=== PATIENT | male | born 1985 | race Caucasian/White ===

== ENCOUNTER 2019-04-24 13:26 | Inpatient (IN) | payer BC ==
[2019-04-24] MEDS ORDERED: NA CHLORIDE 0.9% 1,000 ML ONE (14:19)
[2019-04-24] MEDS ORDERED: PIPER/TAZO/NS 3.375gm 3.375 GM/100 ML BAG ONE (14:19)
--- NOTE | 2019-04-24 14:31 | ER ---
Nurse's Notes [facility] Name: Romeo Valadez Age: 34 yrs Sex: Male : 1985 Arrival Date: 04/24/2019 Time: 13:38 Bed 25 Private MD: Diagnosis: Diverticulitis of large intestine with perforation and w/o abscess Presentation: 04/24 13:38 Presenting complaint: Patient states: I went for an outpatient CT and they said that I la1 had a perforated diverticulum. They sent me here. Transition of care: patient was not received from another setting of care. Onset of symptoms was April 24, 2019. Risk Assessment: Do you want to hurt yourself or someone else? Patient reports no desire to harm self or others. Initial Sepsis Screen: Does the patient meet any 2 criteria? No. Patient's initial sepsis screen is negative. Does the patient have a suspected source of infection? No. Patient's initial sepsis screen is negative. Care prior to arrival: None. 13:38 Method Of Arrival: Ambulatory la1 13:38 Acuity: CAROLIN 2 la1 Historical: - Allergies: 13:41 No Known Allergies; la1 - Home Meds: 13:41 None [Active]; la1 - PMHx: 13:41 None; la1 - PSHx: 13:41 Tonsillectomy; la1 - Immunization history:: Adult Immunizations up to date. - Social history:: Smoking status: Patient/guardian denies using tobacco. - Ebola Screening: : No symptoms or risks identified at this time. Screenin:01 Abuse screen: Denies threats or abuse. Denies injuries from another. Nutritional ca1 screening: No deficits noted. Tuberculosis screening: No symptoms or risk factors identified. Fall Risk IV access (20 points). Assessment: 14:00 General: Appears in no apparent distress. comfortable, Behavior is calm, cooperative, ca1 appropriate for age. Pain: Complains of pain in suprapubic area Pain does not radiate. Pain currently is 2 out of 10 on a pain scale. Pain began a week ago Is intermittent. Neuro: Level of Consciousness is awake, alert, obeys commands, Oriented to person, place, time, situation. Cardiovascular: Heart tones S1 S2 present Capillary refill < 3 seconds Patient's skin is warm and dry. Respiratory: Airway is patent Respiratory effort is even, unlabored, Respiratory pattern is regular, symmetrical, Breath sounds are clear bilaterally. GI: Abdomen is round non-distended, Bowel sounds present X 4 quads. Abd is soft and non tender X 4 quads. Reports constipation, Patient currently denies nausea, vomiting. : No deficits noted. No signs and/or symptoms were reported regarding the genitourinary system. EENT: No deficits noted. No signs and/or symptoms were reported regarding the EENT system. Derm: Skin is intact, is healthy with good turgor, Skin is pink, warm \T\ dry. Musculoskeletal: Circulation, motion, and sensation intact. Capillary refill < 3 seconds, Range of motion: intact in all extremities. 14:36 Reassessment: Dr. Randhawa and Dr. Ortiz at bedside. ca1 15:34 Reassessment: Patient appears in no apparent distress at this time. Patient and/or ca1 family updated on plan of care and expected duration. Pain level reassessed. Patient is alert, oriented x 3, equal unlabored respirations, skin warm/dry/pink. 16:10 Reassessment: Patient appears in no apparent distress at this time. Patient is alert, ca1 oriented x 3, equal unlabored respirations, skin warm/dry/pink. Vital Signs: 13:43 Weight 78.93 kg; la1 14:05 BP 121 / 93; Pulse 75; Resp 20; Temp 98.2(O); Pulse Ox 100% ; lt1 14:38 BP 135 / 91; Pulse 75; Resp 16 S; Pulse Ox 100% on R/A; ca1 15:34 BP 122 / 90; Pulse 89; Resp 14 S; Pulse Ox 100% on R/A; ca1 16:10 BP 128 / 93; Pulse 79; Resp 16 S; Pulse Ox 100% on R/A; ca1 ED Course: 13:38 Patient arrived in ED. la1 13:38 Charlie Laboy RN is Primary Nurse. la1 13:39 Munir Redmond PA is PHCP. cp 13:39 Álvaro Sims MD is Attending Physician. cp 13:39 Triage completed. la1 13:43 Arm band placed on left wrist. la1 14:00 No provider procedures requiring assistance completed. IV is patent, IV from CT out pt. ca1 . Flushed left antecubital with 5 ml normal saline. 14:01 Patient has correct armband on for positive identification. Placed in gown. Bed in low ca1 position. Call light in reach. Side rails up X 1. Pulse ox on. NIBP on. Warm blanket given. 14:22 Initial lab(s) drawn, by me, sent to lab. Inserted IV was completed prior to coming to lt1 the emergency room. IV 22. 14:26 Kodi Ortiz DO is Hospitalizing Provider. cp 16:21 Patient admitted, IV remains in place. ca1 Administered Medications: 14:22 Drug: NS 0.9% 1000 ml Route: IV; Rate: 1 bolus; Site: left antecubital; ca1 16:23 Follow up: Response: No adverse reaction; IV Status: Completed infusion; IV Intake: ca1 1000ml 14:25 Drug: Zosyn 3.375 grams Route: IVPB; Infused Over: 60 mins; Site: left antecubital; ca1 15:35 Follow up: Response: No adverse reaction; IV Status: Completed infusion ca1 Intake: 16:23 IV: 1000ml; Total: 1000ml. ca1 Outcome: 14:29 Decision to Hospitalize by Provider. cp 16:21 Admitted to Tele accompanied by tech, family with patient, via wheelchair, room 415, ca1 with chart, Report called to Cam Nelson RN 16:21 Condition: stable 16:21 Instructed on the need for admit. 16:35 Patient left the ED. ca1 Signatures: Charlie Laboy RN RN la1 Munir Redmond PA PA cp Sonia Boyd RN RN ca1 Piedad Moeller [facility] Corrections: (The following items were deleted from the chart) 13:43 13:38 Acuity: CAROLIN 3 la1 la1
--- NOTE | 2019-04-24 14:32 | EDPHYS ---
Physician Documentation [facility] Name: Romeo Valadez Age: 34 yrs Sex: Male : 1985 Arrival Date: 04/24/2019 Time: 13:38 Bed 25 Private MD: ED Physician Álvaro Sims HPI: 04/24 14:00 This 34 yrs old Male presents to ER via Ambulatory with complaints of cp abdominal pain. 14:00 The patient presents with abdominal pain in the lower abdomen. Onset: The cp symptoms/episode began/occurred last month, and became worse 1 week(s) ago. The symptoms do not radiate. Associated signs and symptoms: Pertinent positives: constipation, Pertinent negatives: anorexia, blood in stools, diarrhea, fever, hematuria, testicular pain, vomiting. The symptoms are described as constant. Modifying factors: the symptoms are aggravated by pressure. 14:00 Severity of pain: in the emergency department the pain is a 2 / 10. cp 14:00 The patient has not experienced similar symptoms in the past. cp Historical: - Allergies: 13:41 No Known Allergies; la1 - Home Meds: 13:41 None [Active]; la1 - PMHx: 13:41 None; la1 - PSHx: 13:41 Tonsillectomy; la1 - Immunization history:: Adult Immunizations up to date. - Social history:: Smoking status: Patient/guardian denies using tobacco. - Ebola Screening: : No symptoms or risks identified at this time. ROS: 14:15 Constitutional: Negative for body aches, chills, fever, poor PO intake. cp 14:15 Eyes: Negative for injury, pain, redness, and discharge. cp 14:15 ENT: Negative for drainage from ear(s), ear pain, sore throat, difficulty swallowing, difficulty handling secretions. 14:15 Cardiovascular: Negative for chest pain, edema, palpitations. 14:15 Respiratory: Negative for cough, shortness of breath, wheezing. 14:15 Abdomen/GI: Positive for abdominal pain, constipation, Negative for vomiting, diarrhea, black/tarry stool, rectal bleeding. 14:15 Back: Negative for radiated pain. 14:15 : Negative for urinary symptoms, testicular pain 14:15 Skin: Negative for cellulitis, rash. 14:15 Neuro: Negative for altered mental status, headache, weakness. 14:15 All other systems are negative. Exam: 14:20 Constitutional: The patient appears in no acute distress, alert, awake, cp non-diaphoretic, non-toxic, well developed, well nourished. 14:20 Head/Face: Normocephalic, atraumatic. cp 14:20 Eyes: Periorbital structures: appear normal, Conjunctiva: normal, no exudate, no injection, Sclera: no appreciated abnormality, Lids and lashes: appear normal, bilaterally. 14:20 ENT: External ear(s): are unremarkable, Nose: is normal, Mouth: Lips: moist, Oral mucosa: pink and intact, moist, Posterior pharynx: is normal, airway is patent, no erythema, no exudate. 14:20 Chest/axilla: Inspection: normal, Palpation: is normal, no crepitus, no tenderness. 14:20 Cardiovascular: Rate: normal, Rhythm: regular, Edema: is not appreciated. 14:20 Respiratory: the patient does not display signs of respiratory distress, Respirations: normal, no use of accessory muscles, no retractions, no splinting, no tachypnea, labored breathing, is not present, Breath sounds: are clear throughout, no decreased breath sounds, no stridor, no wheezing. 14:20 Abdomen/GI: Inspection: abdomen appears normal, Bowel sounds: active, all quadrants, Palpation: soft, in all quadrants, mild abdominal tenderness, in the suprapubic area, rebound tenderness, is not appreciated, voluntary guarding, is not appreciated, involuntary guarding, is not appreciated. 14:20 Back: pain, is absent, ROM is normal. 14:20 Skin: no rash present. Vital Signs: 13:43 Weight 78.93 kg; la1 14:05 BP 121 / 93; Pulse 75; Resp 20; Temp 98.2(O); Pulse Ox 100% ; lt1 14:38 BP 135 / 91; Pulse 75; Resp 16 S; Pulse Ox 100% on R/A; ca1 15:34 BP 122 / 90; Pulse 89; Resp 14 S; Pulse Ox 100% on R/A; ca1 16:10 BP 128 / 93; Pulse 79; Resp 16 S; Pulse Ox 100% on R/A; ca1 MDM: 13:42 Patient medically screened. cp 14:14 Physician consultation: Chino Valadez MD was called at 14:10, was contacted at 14:10, cp regarding consult, patient's condition. 14:30 Physician consultation: Kodi Diana COLEMAN was called at 14:25, was contacted at 14:25, cp regarding admission, to the medical/surgical unit. patient's condition. 15:30 Data reviewed: vital signs, nurses notes, diagnostic data from outside facility, cp radiologic studies, CT scan, lab test result(s), and as a result, I will admit patient. 04/24 14:10 Order name: Basic Metabolic Panel; Complete Time: 15:26 cp 04/24 15:26 Interpretation: Normal except: GFR 77. cp 04/24 14:10 Order name: CBC with Diff; Complete Time: 15:27 cp 04/24 15:27 Interpretation: Reviewed. cp 04/24 14:10 Order name: Creatinine for Radiology; Complete Time: 15:26 cp 04/24 14:10 Order name: Hepatic Function; Complete Time: 15:26 cp 04/24 15:26 Interpretation: Normal except: ALK 187; TP 8.6; GLOB 4.9; A/G 0.8. cp 04/24 14:10 Order name: Lipase; Complete Time: 15:26 cp 04/24 14:10 Order name: PT-INR cp 04/24 14:10 Order name: IV Saline Lock; Complete Time: 14:18 cp 04/24 14:10 Order name: Labs collected and sent; Complete Time: 14:21 cp 04/24 14:10 Order name: Ptt, Activated cp 04/24 14:10 Order name: Magnesium; Complete Time: 15:26 cp 04/24 15:26 Interpretation: Abnormal: MG 2.6. cp Administered Medications: 14:22 Drug: NS 0.9% 1000 ml Route: IV; Rate: 1 bolus; Site: left antecubital; ca1 16:23 Follow up: Response: No adverse reaction; IV Status: Completed infusion; IV Intake: ca1 1000ml 14:25 Drug: Zosyn 3.375 grams Route: IVPB; Infused Over: 60 mins; Site: left antecubital; ca1 15:35 Follow up: Response: No adverse reaction; IV Status: Completed infusion ca1 Disposition: 16:41 Co-signature as Attending Physician, Álvaro Sims MD. rn Disposition: 04/24/19 14:29 Hospitalization ordered by Kodi Ortiz for Inpatient Admission. Preliminary diagnosis is Diverticulitis of large intestine with perforation and w/o abscess. - Bed requested for Telemetry/MedSurg (observation). - Status is Inpatient Admission. ca1 - Condition is Stable. - Problem is new. - Symptoms have improved. UTI on Admission? No Signatures: Dispatcher [employer] EDMS Joanne Reinoso bd Álvaro Sims MD MD rn Attema, Lee, RN RN la1 Munir Redmond PA PA cp Acob, Sonia RN RN ca1 Corrections: (The following items were deleted from the chart) 15:36 14:29 Hospitalization Ordered by Kodi Ortiz DO for Inpatient Admission. Preliminary bd diagnosis is Diverticulitis of large intestine with perforation and w/o abscess. Bed requested for Telemetry/MedSurg (observation). Status is Inpatient Admission. Condition is Stable. Problem is new. Symptoms have improved. UTI on Admission? No. cp 16:35 15:36 04/24/2019 14:29 Hospitalization Ordered by Kodi Ortiz DO for Inpatient ca1 Admission. Preliminary diagnosis is Diverticulitis of large intestine with perforation and w/o abscess. Bed requested for Telemetry/MedSurg (observation). Status is Inpatient Admission. Condition is Stable. Problem is new. Symptoms have improved. UTI on Admission? No. bd
[2019-04-24 14:33] LABS: Absolute Lymphocytes (CBC) 2.7 K/uL (0.7-4.9); Basophils % 0.7 % (0-1.3); Hematocrit 43.1 % (39.6-49.0); Lymphocytes % 29.2 % (15.3-44.8); MPV 9.1 fL (7.6-11.3); RBC Red Blood Cell Count 4.92 M/uL (4.33-5.43)
[2019-04-24 14:36] LABS: Protime INR 1.09
--- NOTE | 2019-04-24 14:54 | P.HP ---
Certification for Inpatient Patient admitted to: Inpatient With expected LOS: >2 Midnights Patient will require the following post-hospital care: None Practitioner: I am a practitioner with admitting privileges, knowledge of patient current condition, hospital course, and medical plan of care. Services: Services provided to patient in accordance with Admission requirements found in Title 42 Section 412.3 of the Code of Federal Regulations Patient History Date of Service: 04/24/19 Primary Care Provider: None, GI-Dr. Winn Reason for admission: Abnormal CT scan History of Present Illness: 34-year-old male presented to the emergency room due to abnormal CT scan. Over the past week patient had reported some lower quadrant abdominal pain. It was most severe last Tuesday. He rated the pain about a 8/10. No radiation of pain noted.. He reported mild fever. He denied any significant nausea, vomiting. The pain actually improved but was still persistent. He reports pain being around 2/10 with palpation today. Some constipation noted. He decided to go to a GI doctor to further evaluate. After being evaluated by GI, CT scan was performed. CT scan revealed contained sigmoid diverticulitis perforation. He was recommended that he go to the ER for admission. In the ER patient evaluated. Vital signs stable. White count 9.2, hemoglobin 14.8. Pro calcitonin pending. CT scan reviewed. Patient admitted for further evaluation and treatment. When I saw the patient ER, he appeared comfortable. Family at bedside. Surgery -Dr. Valadez also at bedside. Home medications list reviewed: Yes - Past Medical/Surgical History Past Medical History: Patient denies medical history -: Tonsillectomy Psychosocial/ Personal History: Patient is . - Family History Family History: Reviewed- Non-Contributory - Social History Smoking Status: Never smoker Alcohol use: Yes CD- Drugs: No Caffeine use: Yes Place of Residence: Home Review of Systems General: Fever, As per HPI Eyes: Unremarkable ENT: Unremarkable Respiratory: Unremarkable Cardiovascular: Unremarkable Gastrointestinal: Abdominal Pain, Constipation, As per HPI Genitourinary: Unremarkable Musculoskeletal: Unremarkable Integumentary: Unremarkable Neurological: Unremarkable Lymphatics: Unremarkable Physical Examination - Physical Exam General: Alert, In no apparent distress, Oriented x3, Cooperative HEENT: Atraumatic, Normocephalic, PERRLA, Mucous membr. moist/pink Neck: Supple, No Thyromegaly Respiratory: Clear to auscultation bilaterally, Normal air movement Cardiovascular: Normal pulses, Regular rate/rhythm Gastrointestinal: Normal bowel sounds, Soft and benign, Non-distended, No masses , No rebound, No guarding, Tenderness (Minimal tenderness to the lower abdominal region with deep palpation) Musculoskeletal: No erythema, No tenderness, No warmth Integumentary: No tenderness/swelling, No erythema, No warmth, No cyanosis Neurological: Normal speech, Normal strength at 5/5 x4 extr, Normal tone, Normal affect Lymphatics: No axilla or inguinal lymphadenopathy - Studies Laboratory Data (last 24 hrs) 04/24/19 13:44: PT 12.8 H, INR 1.09, APTT 31.5 04/24/19 13:44: WBC 9.2, Hgb 14.8, Hct 43.1, Plt Count 338 Assessment and Plan - Plan Impression: Lower abdominal pain secondary to contained sigmoid diverticulum perforation Plan: Lower abdominal pain secondary to contained sigmoid diverticulum perforation: Patient will be admitted for further evaluation and treatment. Case discussed with surgery. Will start IV Zosyn. Will keep the patient NPO. If significantly improved will consider restarting diet to a clear liquid tomorrow. Will provide medication for pain, nausea. Will start DVT prophylaxis -Lovenox. Patient will require 2 weeks of outpatient treatment with antibiotics at discharge. Patient will require colonoscopy in 4-6 weeks. Eventually patient will require surgery by colorectal surgery in [place] for his condition. This was discussed in detail with the patient by surgery-Dr. Valadez. Will continue monitor the patient closely. Anticipate discharge in the next 3-4 days pending clinical improvement. Discharge Plan: Home Plan to discharge in: Greater than 2 days - Advance Directives Does patient have a Living Will: No Does patient have a Durable POA for Healthcare: No - Code Status/Comfort Care Code Status Assessed: Yes (The patient is full code) Time Spent Managing Pts Care (In Minutes): 55
[2019-04-24 15:10] LABS: Albumin 3.7 g/dL (3.4-5.0); Bilirubin Direct 0.2 mg/dL (0-0.2); Bilirubin Total 0.5 mg/dL (0.2-1.0); Magnesium 2.6 mg/dL (1.8-2.4); Protein, Total 8.6 g/dL (6.4-8.2)
[2019-04-24 17:15] VITALS: BMI 27.6
[2019-04-24] MEDS ORDERED: ONDANSETRON 4 MG/2 ML VIAL IV PRN (17:28)
[2019-04-24] MEDS ORDERED: ACETAMINOPHEN 500 MG TAB PO PRN (17:28)
[2019-04-24] MEDS ORDERED: MORPHINE 2 MG/ML SYR IV PRN (17:28)
[2019-04-24] MEDS ORDERED: ACETAMINOPHEN 650MG/RECT SUPP PR PRN (17:28)
[2019-04-24] MEDS: NA CHLORIDE 0.9% 1,000 ML IV SCH (17:54)
--- NOTE | 2019-04-24 19:07 | CON ---
Date of Consultation: 04/24/2019 Reason For Consultation: Abdominal pain. History Of Present Illness: Patient is a 34-year-old gentleman, who presents to the emergency room w ith approximately a week history of lower abdominal pain associated in the beginning with a little bi t of nausea, but no vomiting. Does not have diarrhea, but he does have constipation, and patient saw his primary and had a CAT scan done, which showed contained perforated diverticulitis, and I was con sulted. He is awake, alert, and at this time, he denies any pain. No family history of colorectal m alignancy. No dysuria or hematuria. No sore throat, runny nose, cough, headaches, or dizziness. No chest pain. No fever or chills. Review of Systems: Otherwise unremarkable. Past Medical History: Negative. Past Surgical History: Tonsillectomy. Allergies: NO ALLERGIES. Social History: He does not smoke. He drinks occasionally. Family History: Noncontributory. Physical Examination: Vital Signs: Stable. He is currently afebrile. General: He is awake, alert, and oriented x3. Head and Neck: Cranial nerves 2 through 12 grossly within normal limits. No neck masses. No JVD. Throat clear. Neck is supple. Chest: Clear. Heart: S1 and S2. Abdomen: Soft, nondistended. Minimal tenderness in the left lower quadrant suprapubic region. Extremities: Adequately perfused. Nontender. Neuro: Nonfocal. CT of the abdomen and pelvis shows contained sigmoid diverticulum perforation with small collection o f extraluminal air adjacent to the distal sigmoid colon within the mesocolon, moderate stranding is s een. No abscess. No pneumoperitoneum visualized. Patient's white count is 9.2, there is no left sh ift. INR is 1.09. Chemistry is still pending. Assessment: A 34-year-old gentleman with acute perforated sigmoid diverticulitis, contained. Recommendations: Patient will undergo medical treatment with IV antibiotics, and then if he responds well to that, he can be discharged home on oral antibiotics for 2 weeks. He will need dietary consu ltation for an acute sigmoid diverticulitis diet. He will need a colonoscopy in 4 to 6 weeks and the n he would benefit from a laparoscopic resection of this segment of the sigmoid colon in [place] by c orectal surgeon. Plan of care discussed in detail with Dr. Ortiz as well as the patient and his f amily, and we will follow the patient while in the hospital. FILIPE/JUAN Voice ID: [id number] Report ID: [id number]
[2019-04-24 20:32] LABS: Urine Appearance CLEAR; Urine Bilirubin NEGATIVE (NEG); Urine Blood NEGATIVE (NEG); Urine Color YELLOW; Urine Glucose NEGATIVE (NEG); Urine Protein NEGATIVE (NEG); Urine Specific Gravity >=1.030 (1.005-1.030); Urine pH 5.5 (5.0-7.0)
[2019-04-24 20:33] LABS: Urine Microscopic Reflex NO UMIC
[2019-04-25] MEDS: PIPER/TAZO/NS 3.375gm 3.375 GM/100 ML BAG IVPB SCH ×3 (01:02→16:47)
[2019-04-25] MEDS: NA CHLORIDE 0.9% 1,000 ML IV SCH ×2 (04:35→15:59)
[2019-04-25 05:39] LABS: Magnesium 2.2 mg/dL (1.8-2.4); Potassium 4.1 mmol/L (3.5-5.1)
[2019-04-25 05:43] LABS: Absolute Lymphocytes (CBC) 3.5 K/uL (0.7-4.9); Basophils % 0.4 % (0-1.3); Hematocrit 38.7 % (39.6-49.0); Lymphocytes % 32.8 % (15.3-44.8); MPV 9.1 fL (7.6-11.3); RBC Red Blood Cell Count 4.43 M/uL (4.33-5.43)
[2019-04-25] MEDS: ENOXAPARIN 40 MG/0.4 ML SQ SCH (08:28)
[2019-04-25] MEDS ORDERED: TRAMADOL HCL 50 MG TAB PO PRN (08:41)
[2019-04-25] MEDS ORDERED: HYDROCODONE/APAP 7.5/325 MG TAB PO PRN (08:41)
--- NOTE | 2019-04-25 08:45 | P.PN ---
Subjective Date of Service: 04/25/19 Primary Care Provider: None, GI-Dr. Winn Chief Complaint: Abnormal CT scan Subjective: Improving, Doing well (No abdominal pain, nausea or vomiting.) Physical Examination - Vital Signs Temperature: 97.4 F Blood Pressure: 117/73 Pulse: 69 Respirations: 16 Pulse Ox (%): 98 - Physical Exam General: Alert, In no apparent distress, Oriented x3, Cooperative HEENT: Atraumatic Neck: Supple Respiratory: Clear to auscultation bilaterally, Normal air movement Cardiovascular: Normal pulses, Regular rate/rhythm Gastrointestinal: Normal bowel sounds, Soft and benign, Non-distended, No tenderness, No masses, No rebound, No guarding Musculoskeletal: No contractures, No erythema, No tenderness, No warmth Integumentary: No tenderness/swelling, No erythema, No warmth, No cyanosis Neurological: Normal speech, Normal strength at 5/5 x4 extr, Normal tone, Normal affect - Studies Laboratory Data (last 24 hrs) 04/24/19 13:44: PT 12.8 H, INR 1.09, APTT 31.5 04/24/19 13:44: Creatinine 1.03 04/24/19 13:44: WBC 9.2, Hgb 14.8, Hct 43.1, Plt Count 338 04/24/19 13:44: Sodium 139, Potassium 4.0, BUN 15, Creatinine 1.09, Glucose 85, Magnesium 2.6 H, Total Bilirubin 0.5, AST 26, ALT 58, Alkaline Phosphatase 187 H , Lipase 225 Medications List Reviewed: Yes Assessment & Plan Discharge Plan: Home Plan to discharge in: 24 Hours Physician Review Additional Text: Impression: Lower abdominal pain secondary to contained sigmoid diverticulum perforation Plan: Lower abdominal pain secondary to contained sigmoid diverticulum perforation: Patient doing well this time. No nausea, vomiting or abdominal pain noted. Case discussed with surgery. Will start clear liquid diet and advance as tolerated to a low residue GI soft. Continue IV antibiotic therapy. Continue DVT prophylaxis. Will provide medication for pain as needed. Will consult dietary to address and teach on diverticular diet. Patient will require 2 weeks of outpatient treatment with antibiotics(Cipro/Flagyl) at discharge. Patient will require colonoscopy in 4-6 weeks. Eventually patient will require surgery by colorectal surgery in [place] for his condition. Anticipate discharge tomorrow if tolerating diet. Time Spent Managing Pts Care (In Minutes): 55
--- NOTE | 2019-04-25 09:44 | PN ---
Date of Progress Note: 04/25/2019 Subjective: Patient is awake, alert. No complaint. No pain. Objective: Vital Signs: Stable, afebrile. Abdomen: Soft, nondistended, nontender. Positive bowel sounds. Laboratory Data: His white count is 7.7. Assessment: Acute sigmoid diverticulitis with contained perforation. Recommendation: Begin diet and advance as tolerated. Dietary consultation. IV antibiotics. Okay t o discharge in a.m. on oral antibiotics for 2 weeks and follow up with me in the office. /MODL Voice ID: [id number] Report ID: [id number]
[2019-04-26] MEDS: PIPER/TAZO/NS 3.375gm 3.375 GM/100 ML BAG IVPB SCH ×2 (01:06→07:52)
[2019-04-26 04:56] LABS: Absolute Lymphocytes (CBC) 3.5 K/uL (0.7-4.9); Basophils % 0.5 % (0-1.3); Hematocrit 39.2 % (39.6-49.0); Lymphocytes % 38.2 % (15.3-44.8); MPV 8.5 fL (7.6-11.3)
[2019-04-26 05:09] LABS: Magnesium 2.4 mg/dL (1.8-2.4); Potassium 4.3 mmol/L (3.5-5.1)
[2019-04-26] MEDS: ENOXAPARIN 40 MG/0.4 ML SQ SCH (07:52)
--- NOTE | 2019-04-26 09:35 | P.DS ---
Admission Date: 04/24/19 Discharge Date: 04/26/19 Primary Care Provider: None, GI-Dr. Winn Disposition: ROUTINE DISCHARGE Discharge Condition: GOOD Reason for Admission: Abnormal CT scan Consultations: Surgery-Dr. Valadez Procedures: CT scan: FINDINGS: Mild fatty liver Spleen, pancreas, adrenals and kidneys appear unremarkable. Diverticula stem from the colon. Several collections of extraluminal air lies adjacent to the distal sigmoid colon within the mesocolon. Moderate stranding is seen. No abscess. No pneumoperitoneum visualized. IMPRESSION: Contained sigmoid diverticulum perforation Medical Problem List: Lower abdominal pain secondary to contained sigmoid diverticulum perforation Mild Fatty liver Brief History of Present Illness: 34-year-old male presented to the emergency room due to abnormal CT scan. Over the past week patient had reported some lower quadrant abdominal pain. It was most severe last Tuesday. He rated the pain about a 8/10. No radiation of pain noted.. He reported mild fever. He denied any significant nausea, vomiting. The pain actually improved but was still persistent. He reports pain being around 2/10 with palpation today. Some constipation noted. He decided to go to a GI doctor to further evaluate. After being evaluated by GI, CT scan was performed. CT scan revealed contained sigmoid diverticulitis perforation. He was recommended that he go to the ER for admission. In the ER patient evaluated. Vital signs stable. White count 9.2, hemoglobin 14.8. Pro calcitonin pending. CT scan reviewed. Patient admitted for further evaluation and treatment. When I saw the patient ER, he appeared comfortable. Family at bedside. Surgery -Dr. Valadez also at bedside. Hospital Course: Patient presented with lower abdominal pain. Patient was seen by GI as an outpatient and sent for CT scan. CT scan showed contained sigmoid diverticulum perforation. Patient was admitted for further evaluation and treatment. Patient was seen by surgery. Patient remained stable during the course of his stay. Patient received IV antibiotic therapy. His diet was advanced. Patient tolerated his diet. At discharge he is without any significant pain. At discharge patient may continue with a low residue diverticular diet. At discharge patient will continue with Cipro 500 mg 1 pill twice daily and Flagyl 500 mg 3 times a day for 14 days. Patient will follow up with surgery-Dr. Valadez in 2 weeks to follow up this hospitalization. Patient will likely require repeat CT scan at that time to monitor his progress. Surgery plans to send patient to colorectal surgery in [place] after that time for surgical intervention. Patient will require colectomy with anastomosis. Patient will need colonoscopy prior to surgical intervention. If patient develops significant abdominal pain or fever as an outpatient, he is to contact surgery for further recommendation. Patient identified to have mild fatty liver. Education will be provided. Patient may follow up with GI to further address. Vital Signs/Physical Exam: Temp Pulse Resp BP Pulse Ox 97 F 53 18 114/73 100 04/26/19 04:00 04/26/19 04:00 04/26/19 04:00 04/26/19 04:00 04/26/19 04:00 General: Alert, In no apparent distress, Oriented x3, Cooperative HEENT: Atraumatic Neck: Supple Respiratory: Clear to auscultation bilaterally, Normal air movement Cardiovascular: Normal pulses, Regular rate/rhythm Gastrointestinal: Normal bowel sounds, Soft and benign, Non-distended, No tenderness, No masses, No rebound, No guarding Musculoskeletal: No erythema, No tenderness, No warmth Integumentary: No tenderness/swelling, No erythema, No warmth, No cyanosis Neurological: Normal speech, Normal strength at 5/5 x4 extr, Normal tone, Normal affect Laboratory Data at Discharge: WBC 9.2 K/uL (4.3-10.9) D 04/26/19 04:31 Hgb 13.7 g/dL (13.6-17.9) 04/26/19 04:31 Hct 39.2 % (39.6-49.0) L 04/26/19 04:31 Plt Count 310 K/uL (152-406) 04/26/19 04:31 PT 12.8 SECONDS (9.5-12.5) H 04/24/19 13:44 INR 1.09 04/24/19 13:44 APTT 31.5 SECONDS (24.3-36.9) 04/24/19 13:44 Sodium 143 mmol/L (136-145) 04/26/19 04:31 Potassium 4.3 mmol/L (3.5-5.1) 04/26/19 04:31 BUN 7 mg/dL (7-18) 04/26/19 04:31 Creatinine 0.99 mg/dL (0.55-1.3) 04/26/19 04:31 Glucose 86 mg/dL (74-106) 04/26/19 04:31 Magnesium 2.4 mg/dL (1.8-2.4) 04/26/19 04:31 Total Bilirubin 0.5 mg/dL (0.2-1.0) 04/24/19 13:44 AST 26 U/L (15-37) 04/24/19 13:44 ALT 58 U/L (12-78) 04/24/19 13:44 Alkaline Phosphatase 187 U/L (45-117) H 04/24/19 13:44 Lipase 225 U/L (73-393) 04/24/19 13:44 Home Medications: Ciprofloxacin HCl [Cipro 500 MG Tablet] 500 mg PO BID #28 tab 04/26/19 metroNIDAZOLE [Flagyl] 500 mg PO Q8H #42 tablet 04/26/19 New Medications: Ciprofloxacin HCl [Cipro 500 MG Tablet] 500 mg PO BID #28 tab metroNIDAZOLE [Flagyl] 500 mg PO Q8H #42 tablet Patient Discharge Instructions: 1. Recommend to establish care with a PCP to follow up this hospitalization. 2. Patient presented with lower abdominal pain. Patient was seen by GI as an outpatient and sent for CT scan. CT scan showed contained sigmoid diverticulum perforation. Patient was admitted for further evaluation and treatment. Patient was seen by surgery. Patient remained stable during the course of his stay. Patient received IV antibiotic therapy. His diet was advanced. Patient tolerated his diet. At discharge he is without any significant pain. At discharge patient may continue with a low residue diverticular diet. At discharge patient will continue with Cipro 500 mg 1 pill twice daily and Flagyl 500 mg 3 times a day for 14 days. Patient will follow up with surgery-Dr. Valadez in 2 weeks to follow up this hospitalization. Patient will likely require repeat CT scan at that time to monitor his progress. Surgery plans to send patient to colorectal surgery in [place] after that time for surgical intervention. Patient will require colectomy with anastomosis. Patient will need colonoscopy prior to surgical intervention. If patient develops significant abdominal pain or fever as an outpatient, he is to contact surgery for further recommendation. 3. Patient identified to have mild fatty liver. Education will be provided. Patient may follow up with GI to further address. 4. May return to work on Tuesday Diet: Low residue diverticular diet Activity: Ad fred Time spent managing pt's care (in minutes): 55
[2019-04-26 11:41] VITALS: O2SAT 97
[2019-04-26 13:22] VITALS: BP 111/64; TEMP 97.9
--- NOTE | 2019-04-26 16:02 | PN ---
Date of Progress Note: 04/26/2019 Subjective: Patient is awake, alert. No complaint. Objective: Vital Signs: Stable, afebrile. Abdomen: Completely benign. Laboratory Data: White count is normal. Assessment: Acute sigmoid diverticulitis with contained perforation. Recommendations: Patient cleared for discharge on oral antibiotics for 2 weeks. Follow with me in 2 weeks. Will need a followup CAT scan in 3-4 weeks and then colonoscopy followed by surgical resecti on. Plan of care discussed with patient and Dr. Ortiz. /MODL Voice ID: [id number] Report ID: [id number]
== END 2019-04-26 13:46 | disposition home or self-care (01) | DRG 392 ==
LOC: ER 13:26 → ERHOLD 14:39 → 4TH 16:06
PROVIDERS: ADMIT Family Medicine; ATTEND Family Medicine
DX: K57.20 Diverticulitis of large intestine with perforation and abscess without bleeding (principal); K76.0 Fatty (change of) liver, not elsewhere classified
CPT/HCPCS: 36415; 74177; 80048; 80076; 81003; 83690; 83735; 84145; 85025; 85610; 85730; 87040; 96361; 96365; 99285; J1650; J2543; J7030; Q9967